=== PATIENT | male | born 1990 | race Two or more races ===

== ENCOUNTER 2023-05-07 12:41 | Emergency (ER) | payer MEDICAID ==
[~2023-05-07] VITALS: Ht 182.9 cm; Wt 84.1 kg
[2023-05-07 14:09] LABS: INFLUENZA A-RTPCR,COMBO NEGATIVE (NEGATIVE); INFLUENZA B-RTPCR,COMBO POSITIVE (NEGATIVE); RESPIRATORY SYNCYTIAL VRS-PCR NEGATIVE (NEGATIVE); SARS COVID19 RTPCR, COMBO NEGATIVE (NEGATIVE)
[2023-05-07] MEDS: IBUPROFEN 400 MG TABLET PO ONE (14:53)
[2023-05-07 15:59] VITALS: BP 113/66; PULSE 98; RESP 18; TEMP 100
== END 2023-05-07 16:41 | disposition home or self-care (01) ==
LOC: EMS 12:42
DX: J10.1 Influenza due to other identified influenza virus with other respiratory manifestations (principal); F17.210 Nicotine dependence, cigarettes, uncomplicated; Z20.822 Contact with and (suspected) exposure to COVID-19
CPT/HCPCS: 99283; 0241U; 87430